=== PATIENT | female | born 1990 | race African-American/Black ===

== ENCOUNTER 2019-08-30 21:02 | Emergency (ER) | payer OTHER ==
[~2019-08-30] VITALS: Ht 167.6 cm; Wt 90.7 kg
[2019-08-30] MEDS ORDERED: NORFLEX100 MG PO (23:03)
[2019-08-30] MEDS ORDERED: NAPROSYN500 MG PO (23:03)
[2019-08-30 23:21] VITALS: BP 128/87
== END 2019-08-30 23:20 | disposition home or self-care (01) ==
LOC: ER 21:02
DX: S16.1XXA Strain of muscle, fascia and tendon at neck level, initial encounter (principal); S46.912A Strain of unspecified muscle, fascia and tendon at shoulder and upper arm level, left arm, initial encounter; S00.93XA Contusion of unspecified part of head, initial encounter; F17.210 Nicotine dependence, cigarettes, uncomplicated; W22.8XXA Striking against or struck by other objects, initial encounter; Y93.89 Activity, other specified; Y92.89 Other specified places as the place of occurrence of the external cause; Y99.8 Other external cause status